=== PATIENT | male | born 1980 | race Caucasian/White ===

== ENCOUNTER 2018-07-24 07:17 | Emergency (ER) | payer BC ==
[~2018-07-24] VITALS: Ht 167.6 cm; Wt 127.0 kg
[2018-07-24 07:20] VITALS: BP_SYST 130
--- NOTE | 2018-07-24 07:30 | NUR ---
Patient to ER bed 3 to gown for evaluation. Side rails up.
--- NOTE | 2018-07-24 07:40 | NUR ---
ER at bedside examining patient.
[2018-07-24 08:35] LABS: ACETONE, SERUM NEGATIVE (NEGATIVE); INR 0.9 (0.80-1.20); PROTHROMBIN TIME 9.4 SECS (9.5-12.5)
[2018-07-24 08:37] LABS: ANION GAP 7 (5-15); CALCIUM 9.2 mg/dL (8.4-11.0); CHLORIDE 100 mmol/L (98-107); CREATININE 0.84 mg/dL (0.55-1.30); GLUCOSE 205 mg/dL (70-99); POTASSIUM 4.1 mmol/L (3.5-5.1); SODIUM SERUM 135 mmol/L (136-145); UREA NITROGEN, BLOOD 11 mg/dL (8-21)
[2018-07-24 08:38] LABS: HEMATOCRIT 42.4 % (36-54); HEMOGLOBIN 14.3 g/dL (14.0-18.0); MEAN CORPUSCULAR VOLUME 83 fL (79.0-98.0); RED BLOOD CELL COUNT(AUTO) 5.07 MIL/uL (4.2-6.2); WHITE BLOOD COUNT (AUTO) 11.9 K/uL (4.8-10.8)
[2018-07-24 08:39] LABS: BASOPHILS # (AUTO) 0.1 K/uL (0.0-0.2); BASOPHILS % (AUTO) 0.4 % (0.0-2.0); EOSINOPHILS # (AUTO) 0.1 K/uL (0.0-0.4); EOSINOPHILS % (AUTO) 0.6 % (0.0-4.0); LYMPHOCYTES # (AUTO) 1.7 K/uL (1.0-5.5); LYMPHOCYTES % (AUTO) 14.4 % (20.5-51.5); MEAN CORPUSCULAR HEMOGLOBIN 28 pg (27-31); MEAN CORPUSCULAR HGB CONC 34 % (32-36); MONOCYTES # (AUTO) 0.9 K/uL (0.0-1.0); MONOCYTES % (AUTO) 7.5 % (1.7-9.3); NEUTROPHILS # (AUTO) 9.2 K/uL (1.8-7.7); NEUTROPHILS % (AUTO) 77.1 % (40.0-70.0); PLATELET COUNT (AUTO) 293 K/uL (130-430); RED CELL DISTRIBUTION WIDTH 13.3 % (9.0-15.0)
[2018-07-24 08:42] LABS: ALANINE AMINOTRANSFERASE 40 U/L (12-78); ALBUMIN 3.7 g/dL (3.4-4.8); ASPARTATE AMINOTRANSFERASE 17 U/L (10-37); TOTAL BILIRUBIN 0.4 mg/dL (0.0-1.0)
--- NOTE | 2018-07-24 09:10 | NUR ---
Patient preented to the ER with c/o heart palpatations. Patient A&O x4, afebrile, respirations equal bilat. EKG done on pt. Patient states heart palpatations started this morning around 0600. Patient also states he had a telephone conversation that may have caused anxiety.
[2018-07-24 09:50] VITALS: BP_SYST 130
--- NOTE | 2018-07-24 09:50 | NUR ---
Patient given written and verbal discharge instructions and verbalizes understanding. ER MD discussed with patient the results and treatment provided. Patient in stable condition. ID arm band removed. No Rx given. Patient educated on pain management and to follow up with PMD. Pain Scale 0/10. Opportunity for questions provided and answered. Medication side effect fact sheet provided.
[2018-07-24 10:25] LABS: FREE T4 (FREE THYROXINE) 0.7 ng/dL (0.6-1.6); THYROID STIMULATING HORMONE 1.43 uIu/mL (0.34-4.82)
== END 2018-07-24 09:50 | disposition home or self-care (01) ==
LOC: SED 07:17
DX: R00.2 Palpitations (principal)
CPT/HCPCS: 36415; 71045; 80053; 81002; 82009-TC; 83036; 84439; 84443-TC; 84484; 85025; 85610-TC; 85730-TC; 93005; 99284